=== PATIENT | female | born 1960 | race Caucasian/White ===

== ENCOUNTER → 2016-05-18 | Outpatient (CLI) | payer BC ==
--- NOTE | 2016-05-18 18:26 | DX ---
Left foot, 3 views. HISTORY: Pain. FINDINGS: Bipartite tibial sesamoid over the first metatarsal. Moderate size plantar calcaneal spur. Joint spaces are maintained. No fracture. IMPRESSION: Plantar calcaneal spur, otherwise negative.
== END ==
LOC: FIMAGING 16:43
PROVIDERS: ATTEND Physician Assistant
DX: M77.32 Calcaneal spur, left foot (principal)

== ENCOUNTER → 2017-04-17 | Outpatient (CLI) | payer BC | LOC: FIMAGING 16:04 | PROVIDERS: ATTEND Nurse Practitioner Women's Health | DX: Z12.31 Encounter for screening mammogram for malignant neoplasm of breast (principal); Z80.3 Family history of malignant neoplasm of breast | CPT/HCPCS: G0202 ==

== ENCOUNTER → 2018-04-12 | Outpatient (CLI) | payer BC | LOC: FIMAGING 15:15 | PROVIDERS: ATTEND Nurse Practitioner Women's Health | DX: Z12.31 Encounter for screening mammogram for malignant neoplasm of breast (principal) ==